=== PATIENT | female | born 1980 | race Asian ===

== ENCOUNTER 2017-07-29 20:03 | Emergency (ER) | payer BC ==
[~2017-07-29] VITALS: Ht 172.7 cm; Wt 62.6 kg
[~2017-07-29 20:03] MED LIST: Percocet 5-3251 EACH PO; Zofran Odt8 MG SL
[2017-07-29] MEDS ORDERED: SUCR1 PO (20:47)
[2017-07-29] MEDS ORDERED: CYCL10 PO (21:42)
== END 2017-07-29 21:51 | disposition home or self-care (01) ==
LOC: ER 20:03
DX: M54.5 Low back pain (principal); Z79.899 Other long term (current) drug therapy
CPT/HCPCS: 96372; 99283; J1885

== ENCOUNTER 2018-05-26 22:18 | Emergency (ER) | payer BC ==
[~2018-05-26] VITALS: Ht 165.1 cm; Wt 67.1 kg
[~2018-05-26 22:18] MED LIST changes: +CYCL10 PO; +LOPE2C PO; +Pantoprazole So40 MG PO; +SUCR1 PO
[2018-05-26 23:05] LABS: Source, Urine Clean Catch
[2018-05-26 23:07] LABS: Bilirubin, Urine Neg (Neg); Blood, Urine 3+ (Neg); Glucose Qualitative, Urine Neg (Neg); Ketones, Urine Neg (Neg); Leukocyte Esterase, Urine 2+ (Neg); Nitrite, Urine Neg (Neg); Protein, Urine 2+ (Neg); Specific Gravity, Urine 1.015 (1.003-1.022); Urobilinogen, Urine NORM (Normal)
[2018-05-26 23:09] LABS: Appearance, Urine Hazy (Clear); Color, Urine Yellow (P-Yellow)
[2018-05-26] MEDS ORDERED: BIRTH CONTROL (23:09)
[2018-05-26 23:24] LABS: Bacteria Many /hpf; Squamous Epithelial Cells Few /hpf (Few); White Blood Cells, Urine 50-100 /hpf (0-5)
[2018-05-26] MEDS ORDERED: Macrodantin100 MG PO (23:51)
[2018-05-26] MEDS ORDERED: Pyridium200 MG PO (23:53)
== END 2018-05-27 | disposition home or self-care (01) ==
LOC: ER 22:18
PROVIDERS: Emergency Medicine
DX: N39.0 Urinary tract infection, site not specified (principal)
CPT/HCPCS: 81001; 87077; 87086; 87186; 99283

== ENCOUNTER → 2019-06-25 | Outpatient (CLI) | payer BC ==
[~2019-06-25] MED LIST changes: +BIRTH CONTROL; +Macrodantin100 MG PO; +Pyridium200 MG PO
[2019-06-29 15:08] LABS: HPV 16 Negative (Negative); HPV 18 Negative (Negative); HPV OTHER HR TYPES Negative (Negative)
== END ==
LOC: LAB SHORT 15:30 → LAB 15:30
PROVIDERS: Obstetrics & Gynecology
DX: Z01.419 Encounter for gynecological examination (general) (routine) without abnormal findings (principal)
CPT/HCPCS: 87624; G0123

== ENCOUNTER 2019-09-10 12:52 | Day surgery (SDC) | payer BC ==
[~2019-09-10] VITALS: Ht 172.7 cm; Wt 70.4 kg
--- NOTE | 2019-09-10 14:12 | NUR ---
09/10/19 1412 Mayda Maldonado NO FLUID DEFICIT
--- NOTE | 2019-09-10 14:46 | NUR ---
09/10/19 1446 Jagruti Desouza V PT RESTING IN RECLINER WITH EYES CLOSED. DENIES PAIN AND NAUSEA. WARM BLANKET GIVEN FOR COMFORT.
== END 2019-09-10 15:30 | disposition home or self-care (01) ==
LOC: ORSCSDS 12:52
PROVIDERS: Obstetrics & Gynecology
PROC: 0UDB7ZX Extraction of Endometrium, Via Natural or Artificial Opening, Diagnostic (ICD-10-PCS; principal; 2019-09-10 14:00)
PROC: 0UJD8ZZ Inspection of Uterus and Cervix, Via Natural or Artificial Opening Endoscopic (ICD-10-PCS; principal; 2019-09-10 14:00)
DX: N92.1 Excessive and frequent menstruation with irregular cycle (principal); N81.4 Uterovaginal prolapse, unspecified
CPT/HCPCS: J1100; J1885; J2250; J2405; J2704; J3010; J7120

== ENCOUNTER → 2021-03-08 | Outpatient (CLI) | payer BC ==
[2021-03-09 15:11] LABS: HPV 16 Negative (Negative); HPV 18 Negative (Negative); HPV OTHER HR TYPES Negative (Negative)
== END | disposition home or self-care (01) ==
LOC: LAB SHORT 17:09
PROVIDERS: Obstetrics & Gynecology
DX: Z01.419 Encounter for gynecological examination (general) (routine) without abnormal findings (principal)
CPT/HCPCS: 87624; G0123

== ENCOUNTER 2021-06-23 15:00 | Observation (INO) | payer BC ==
[~2021-06-23] VITALS: Ht 170.2 cm; Wt 59.9 kg
[2021-06-23 15:54] LABS: BASOPHILS ABSOLUTE AUTO 0.05 K/mm3 (0.00-0.23); BASOPHILS PERCENT AUTO 1 % (0-2); EOSINOPHILS ABSOLUTE AUTO 0.41 K/mm3 (0.00-0.68); EOSINOPHILS PERCENT AUTO 4 % (0-6); Hematocrit 40.6 % (33.0-51.0); IMMATURE GRAN ABSOLUTE AUTO 0.04 K/mm3 (0.00-0.10); IMMATURE GRAN PERCENT AUTO 0 % (0-1); LYMPHOCYTES ABSOLUTE AUTO 1.48 K/mm3 (0.84-5.20); LYMPHOCYTES PERCENT AUTO 16 % (21-46); MONOCYTES ABSOLUTE AUTO 0.55 K/mm3 (0.16-1.47); MONOCYTES PERCENT AUTO 6 % (4-13); Mean Corpuscular HGB 29.3 pg (26.0-34.0); Mean Corpuscular Volume 91 fL (80-100); Mean Platelet Volume 11.4 fL (9.1-12.4); NEUTROPHILS ABSOLUTE AUTO 7.03 K/mm3 (1.96-9.15); NEUTROPHILS PERCENT AUTO 74 % (41-73); Platelet Count 199 K/mm3 (150-400); RDW Coefficient Variation 12.4 % (11.7-14.2); RDW Standard Deviation 41.1 fL (35.1-46.3); Red Blood Cell Count 4.44 M/mm3 (3.80-5.20); White Blood Cell Count 9.56 K/mm3 (4.00-11.30)
[2021-06-23 16:10] LABS: Alanine Aminotransfer (ALT/SGP 24 U/L (12-78); Albumin, Blood 3.7 g/dL (3.4-5.0); Alk Phos 66 U/L (50-136); Anion Gap 8 mmol/L (6-16); Aspartate Aminotrans (AST/SGOT 10 U/L (12-37); Blood Urea Nitrogen 15 mg/dL (8-24); Bun/Creatinine Ratio 31.6 (12.0-20.0); CO2, Blood 23 mmol/L (21-32); Calcium, Blood 8.5 mg/dL (8.5-10.1); Chloride, Blood 109 mmol/L (98-108); Creatinine, Blood 0.48 mg/dL (0.40-1.00); Globulin, Blood 3.7 g/dL (2.2-4.0); Glomerular Filtration Rate >60 (60-); Glucose, Blood 126 mg/dL (70-99); Potassium, Blood 3.2 mmol/L (3.5-5.5); Sodium, Blood 140 mmol/L (136-145); Total Protein, Blood 7.4 g/dL (6.4-8.2)
[2021-06-23 17:23] LABS: Source, Urine Clean Catch
[2021-06-23 17:33] LABS: Bilirubin, Urine Neg (Neg); Blood, Urine 5+ (Neg); Glucose Qualitative, Urine Neg (Neg); Ketones, Urine Neg (Neg); Leukocyte Esterase, Urine 1+ (Neg); Nitrite, Urine Neg (Neg); Protein, Urine 1+ (Neg); Specific Gravity, Urine 1.015 (1.003-1.022); Urobilinogen, Urine NORM (Normal); pH, Urine 6.5 (5.0-8.0)
[2021-06-23 17:44] LABS: Appearance, Urine Hazy (Clear); Color, Urine Pale Yellow (P-Yellow)
[2021-06-23 17:47] LABS: Bacteria Few /hpf; Squamous Epithelial Cells Rare /hpf (Few)
--- NOTE | 2021-06-23 21:42 | NUR ---
SPOKE TO KEL, ER NURSE, WHO STATES THAT PT HAD POC RAPID COVID TEST IN ER AND RESULT WAS NEGATIVE.
--- NOTE | 2021-06-23 21:47 | NUR ---
PT ARRIVED TO SURGICAL FLOOR AT 20:06 ACCOMPANIED BY SENIOR INTEGRATION DEVELOPER. [facility] BED. ROOM AIR. 18GA IV IN RIGHT AC. PT IS a&0 X4. INDEPENDENT IN ROOM, BATHROOM PRIVILEGES. REPORTS ABD PAIN ONLY WITH MOVEMENT, RATING PAIN 8/10 WITH MOVEMENT AND 0/10 WHEN STILL. DENIES N/V/D. LUNGS CLEAR. STRONG BILAT RADIAL AND PEDAL PULSES. SKIN C/D/I. NO ACUTE DISTRESS. NO SIGNIFICANT MEDICAL HISTORY. HOME MEDICATION INCLUDES CONTROL PILLS. ORIENTED TO ROOM AND CALL LIGHT. RN WILL PROVIDE CLOSE OBSERVATION.
--- NOTE | 2021-06-24 05:14 | NUR ---
SHIFT SUMMARY JENNIFER SLEPT MOST OF THE NIGHT. DENIED PAIN OR NEED FOR PAIN MEDICATION. ROOM AIR. LUNGS CLEAR. DENIES N/V/D. SURGICAL PRE-OP: NEGATIVE COVID TEST IN ER. 18 GA IV IN RIGHT AC. PT VOIDING WITHOUT DIFFICULTY. BLOOD PRESSURE LOW, PT DENIES HEADACHES OR DIZZINESS, STATES THIS IS HER NORMAL BLOOD PRESSURE RANGE. RN TO RECHECK BLOOD PRESSURE. CALL LIGHT WITHIN REACH, WILL CONTINUE TO MONITOR.
--- NOTE | 2021-06-24 11:48 | NUR ---
PT TAKEN TO SURGERY AT APROXIMATELY 1130.
--- NOTE | 2021-06-24 13:29 | NUR ---
06/24/21 1329 Ian Garcia PT ON SCHEDULED ZOSYN
--- NOTE | 2021-06-24 14:51 | NUR ---
PT ARRIVED BACK TO THE ROOM AT 1435. PT IS RESTING WITH EYES CLOSED BUT HAS TEARS AND IS CRYING. PT'S IS AT THE BEDSIDE FOR SUPPORT. PT REPORTS ABD PAIN BUT IS VERY DROWSY. SHE RESPONDS TO VERBAL STIMULI BUT IS QUITE DROWSY. RESPIRATIONS ARE SHALLOW. PT'S SPOUSE EDUCATED ABOUT RISKS OF PAIN MEDICATION AT THIS TIME. LAP SITES X3 CLOSED WITH WOUND GLUE, NO DRAINAGE AT THIS TIME.
[2021-06-24] MEDS ORDERED: HYDR1TAB94 PO (17:19)
--- NOTE | 2021-06-24 17:50 | NUR ---
DISCHARGE WRITTEN AND VERBAL DISCHARGE ORDERS PROVIDED TO PT AND SPOUSE BY LANDON ROSS. PT ABLE TO VOID, AMBULATE AND PAIN MANAGED AT TIME OF DISCHARGE. VSS. PT AMBULATED OUT WITHOUT ASSISTANCE.
[2021-06-24] MEDS ORDERED: ONDA4ODT MM (23:41)
== END 2021-06-24 17:41 | disposition home or self-care (01) ==
LOC: ER 15:00 → SURS 15:01
PROVIDERS: Physician Assistant; ADMIT Surgery
PROC: 0DTJ4ZZ Resection of Appendix, Percutaneous Endoscopic Approach (ICD-10-PCS; principal; 2021-06-24 13:45)
DX: K35.80 Unspecified acute appendicitis (principal)
CPT/HCPCS: 36415; 74177; 80053; 81001; 81025; 83690; 85025; 87086; 88304; 96365-59; 96366; 96367; 99285-25; G0378; J0295; J1100; J2250; J2405; J2543; J2704; J3010; J7040; J7050; J7120; Q9967

== ENCOUNTER 2021-06-24 21:34 | Emergency (ER) | payer BC ==
[~2021-06-24] VITALS: Ht 167.6 cm; Wt 59.9 kg
[~2021-06-24 21:34] MED LIST changes: +HYDR1TAB94 PO
[2021-06-24 22:40] LABS: BASOPHILS ABSOLUTE AUTO 0.01 K/mm3 (0.00-0.23); BASOPHILS PERCENT AUTO 0 % (0-2); EOSINOPHILS PERCENT AUTO 0 % (0-6); Hematocrit 38.1 % (33.0-51.0); Hemoglobin 12.8 g/dL (11.5-16.0); IMMATURE GRAN ABSOLUTE AUTO 0.02 K/mm3 (0.00-0.10); IMMATURE GRAN PERCENT AUTO 0 % (0-1); LYMPHOCYTES ABSOLUTE AUTO 0.36 K/mm3 (0.84-5.20); LYMPHOCYTES PERCENT AUTO 6 % (21-46); MONOCYTES ABSOLUTE AUTO 0.15 K/mm3 (0.16-1.47); MONOCYTES PERCENT AUTO 3 % (4-13); Mean Corpuscular HGB 29.8 pg (26.0-34.0); Mean Corpuscular HGB Conc 33.6 g/dL (31.5-36.5); Mean Corpuscular Volume 89 fL (80-100); NEUTROPHILS PERCENT AUTO 91 % (41-73); RDW Coefficient Variation 12.5 % (11.7-14.2); Red Blood Cell Count 4.29 M/mm3 (3.80-5.20); White Blood Cell Count 5.84 K/mm3 (4.00-11.30)
[2021-06-24 22:44] LABS: Mean Platelet Volume 11.8 fL (9.1-12.4); Platelet Count 188 K/mm3 (150-400)
[2021-06-24 23:03] LABS: Alanine Aminotransfer (ALT/SGP 37 U/L (12-78); Albumin, Blood 3.6 g/dL (3.4-5.0); Albumin/Globulin Ratio 0.9 (0.8-1.8); Alk Phos 62 U/L (50-136); Anion Gap 4 mmol/L (6-16); Aspartate Aminotrans (AST/SGOT 35 U/L (12-37); Bilirubin, Total 0.8 mg/dL (0.1-1.0); Blood Urea Nitrogen 15 mg/dL (8-24); Bun/Creatinine Ratio 35.8 (12.0-20.0); CO2, Blood 28 mmol/L (21-32); Calcium, Blood 8.9 mg/dL (8.5-10.1); Chloride, Blood 107 mmol/L (98-108); Creatinine, Blood 0.42 mg/dL (0.40-1.00); Globulin, Blood 3.9 g/dL (2.2-4.0); Glomerular Filtration Rate >60 (60-); Glucose, Blood 215 mg/dL (70-99); Potassium, Blood 3.6 mmol/L (3.5-5.5); Sodium, Blood 139 mmol/L (136-145); Total Protein, Blood 7.5 g/dL (6.4-8.2)
[2021-06-24] MEDS ORDERED: ONDA4ODT MM (23:41)
== END 2021-06-25 01:00 | disposition home or self-care (01) ==
LOC: ER 21:34
PROVIDERS: Student in an Organized Health Care Education/Training Program
DX: G89.18 Other acute postprocedural pain (principal); R10.84 Generalized abdominal pain; Z90.89 Acquired absence of other organs
CPT/HCPCS: 36415; 74177; 80053; 83605; 85025; 96374-59; 96375; 99284-25; A9270; J1170; J1885; J2405; J2765; J7120; Q9967

== ENCOUNTER 2021-11-14 16:16 | Emergency (ER) | payer BC ==
[~2021-11-14] VITALS: Ht 167.6 cm; Wt 59.0 kg
[~2021-11-14 16:16] MED LIST changes: +ONDA4ODT MM
[2021-11-14 16:50] LABS: BASOPHILS ABSOLUTE AUTO 0.02 K/mm3 (0.00-0.23); BASOPHILS PERCENT AUTO 0 % (0-2); EOSINOPHILS ABSOLUTE AUTO 0.08 K/mm3 (0.00-0.68); EOSINOPHILS PERCENT AUTO 1 % (0-6); Hematocrit 40.7 % (33.0-51.0); Hemoglobin 13.8 g/dL (11.5-16.0); IMMATURE GRAN ABSOLUTE AUTO 0.02 K/mm3 (0.00-0.10); IMMATURE GRAN PERCENT AUTO 0 % (0-1); LYMPHOCYTES ABSOLUTE AUTO 1.18 K/mm3 (0.84-5.20); LYMPHOCYTES PERCENT AUTO 18 % (21-46); MONOCYTES ABSOLUTE AUTO 0.17 K/mm3 (0.16-1.47); MONOCYTES PERCENT AUTO 3 % (4-13); Mean Corpuscular HGB 29.4 pg (26.0-34.0); Mean Corpuscular HGB Conc 33.9 g/dL (31.5-36.5); Mean Corpuscular Volume 87 fL (80-100); Mean Platelet Volume 10.4 fL (9.1-12.4); NEUTROPHILS ABSOLUTE AUTO 5.28 K/mm3 (1.96-9.15); NEUTROPHILS PERCENT AUTO 78 % (41-73); NRBC ABSOLUTE 0.03 K/mm3 (0.00-0.02); NRBC Auto 0.4 /100 WBC (0.0-0.2); Platelet Count 230 K/mm3 (150-400); RDW Coefficient Variation 11.9 % (11.7-14.2); RDW Standard Deviation 38.1 fL (35.1-46.3); White Blood Cell Count 6.75 K/mm3 (4.00-11.30)
[2021-11-14 17:02] LABS: Albumin/Globulin Ratio 1.1 (0.8-1.8); Bilirubin, Total 0.8 mg/dL (0.1-1.0); Bun/Creatinine Ratio 47.1 (12.0-20.0); Calcium, Blood 9.4 mg/dL (8.5-10.1); Creatinine, Blood 0.38 mg/dL (0.40-1.00); Globulin, Blood 3.7 g/dL (2.2-4.0); Potassium, Blood 3.6 mmol/L (3.5-5.5); Total Protein, Blood 7.7 g/dL (6.4-8.2)
[2021-11-14 18:38] LABS: Source, Urine Clean Catch
[2021-11-14 18:52] LABS: Appearance, Urine Clear (Clear); Bilirubin, Urine Neg (Neg); Blood, Urine Neg (Neg); Color, Urine Yellow (P-Yellow); Glucose Qualitative, Urine Neg (Neg); Ketones, Urine 3+ (Neg); Leukocyte Esterase, Urine 1+ (Neg); Nitrite, Urine Neg (Neg); Protein, Urine 1+ (Neg); Specific Gravity, Urine 1.015 (1.003-1.022); Urobilinogen, Urine NORM (Normal); pH, Urine 6.5 (5.0-8.0)
[2021-11-14 18:58] LABS: Bacteria Mod /hpf; Red Blood Cells, Urine 0-2 /hpf (0-2); Squamous Epithelial Cells Few /hpf (Few)
[2021-11-14 18:59] LABS: Mucus Mod (0-Heavy)
[2021-11-14] MEDS ORDERED: ONDA4ODT MM (19:17)
== END 2021-11-14 19:23 | disposition home or self-care (01) ==
LOC: ER 16:16
PROVIDERS: Physician Assistant
DX: R11.2 Nausea with vomiting, unspecified (principal); E86.1 Hypovolemia; E86.0 Dehydration
CPT/HCPCS: 36415; 80053; 81001; 81025; 83690; 85025; J2405; J7030

== ENCOUNTER → 2021-11-16 | Outpatient (CLI) | payer BC ==
[2021-11-16 11:16] LABS: BASOPHILS ABSOLUTE AUTO 0.01 K/mm3 (0.00-0.23); BASOPHILS PERCENT AUTO 0 % (0-2); EOSINOPHILS ABSOLUTE AUTO 0.13 K/mm3 (0.00-0.68); EOSINOPHILS PERCENT AUTO 3 % (0-6); Hematocrit 39.3 % (33.0-51.0); Hemoglobin 13.1 g/dL (11.5-16.0); IMMATURE GRAN ABSOLUTE AUTO 0.01 K/mm3 (0.00-0.10); IMMATURE GRAN PERCENT AUTO 0 % (0-1); LYMPHOCYTES ABSOLUTE AUTO 1.27 K/mm3 (0.84-5.20); LYMPHOCYTES PERCENT AUTO 33 % (21-46); MONOCYTES ABSOLUTE AUTO 0.22 K/mm3 (0.16-1.47); MONOCYTES PERCENT AUTO 6 % (4-13); Mean Corpuscular HGB Conc 33.3 g/dL (31.5-36.5); Mean Corpuscular Volume 87 fL (80-100); Mean Platelet Volume 10.5 fL (9.1-12.4); NEUTROPHILS ABSOLUTE AUTO 2.25 K/mm3 (1.96-9.15); NEUTROPHILS PERCENT AUTO 58 % (41-73); Platelet Count 230 K/mm3 (150-400); RDW Coefficient Variation 11.9 % (11.7-14.2); RDW Standard Deviation 38.2 fL (35.1-46.3); Red Blood Cell Count 4.51 M/mm3 (3.80-5.20); White Blood Cell Count 3.89 K/mm3 (4.00-11.30)
[2021-11-16 11:26] LABS: Albumin, Blood 3.9 g/dL (3.4-5.0); Albumin/Globulin Ratio 1.3 (0.8-1.8); Bilirubin, Total 1.3 mg/dL (0.1-1.0); Bun/Creatinine Ratio 31.2 (12.0-20.0); Calcium, Blood 8.9 mg/dL (8.5-10.1); Creatinine, Blood 0.48 mg/dL (0.40-1.00); Globulin, Blood 2.9 g/dL (2.2-4.0); Phosphorus, Blood 3.5 mg/dL (2.5-4.9); Potassium, Blood 3.8 mmol/L (3.5-5.5); Total Protein, Blood 6.8 g/dL (6.4-8.2)
== END | disposition home or self-care (01) ==
LOC: LAB SHORT 10:31 → LAB 10:31
PROVIDERS: Family Medicine
DX: B34.9 Viral infection, unspecified (principal)
CPT/HCPCS: 36415; 80053; 84100; 85025